=== PATIENT | male | born 1980 | race Caucasian/White ===

== ENCOUNTER 2018-03-25 19:28 | Emergency (ER) | payer OTHER ==
--- NOTE | 2018-03-25 19:41 | PDOC ---
Rapid Medical Evaluation Time Seen by Provider: 03/25/18 19:36 Medical Evaluation: Allergies Allergy/AdvReac Type Severity Reaction Status Date / Time No Known Allergies Allergy Verified 01/28/15 11:48 03/25/18 19:36 I have performed a brief in-person evaluation of this patient. The patient presents with a chief complaint of: Cough w/ body aches, SORENSON and fever x 3 days Pertinent physical exam findings:Low grade temp and tachy to 115 I have ordered the following:flu/rapid strep The patient will proceed to the ED for further evaluation. 03/25/18 19:42 Discharge Disposition - Diagnosis Viral syndrome - Referrals - Patient Instructions - Post Discharge Activity
[2018-03-25 19:47] VITALS: BMI 27.9
[2018-03-25] MEDS ORDERED: ACETAMINOPHEN 325 MG TABLET (FP) PO ONE (21:53)
[2018-03-25 21:55] VITALS: BP 130/84; PULSE 91; TEMP 97.9
[2018-03-25] MEDS ORDERED: ACETAMINOPHEN 325 MG TABLET (FP) ONE (21:56)
--- NOTE | 2018-03-25 21:57 | PDOC ---
History of Present Illness - General Chief Complaint: Cold Symptoms Stated Complaint: COUGHING Time Seen by Provider: 03/25/18 19:36 History Source: Patient - History of Present Illness Timing/Duration: reports: other Severity: reports: moderate Associated Symptoms: reports: cough, fever/chills, sore throat Past History - Past Medical History Allergies/Adverse Reactions: Allergies Allergy/AdvReac Type Severity Reaction Status Date / Time No Known Allergies Allergy Verified 01/28/15 11:48 Home Medications: Ambulatory Orders Amoxicillin - [Amoxicillin 875mg Tablet -] 875 mg PO BID #14 tab 03/25/18 Ibuprofen [Motrin -] 800 mg PO Q6H #30 tablet 03/25/18 COPD: No Hypercholesterolemia: Yes - Suicide/Smoking/Psychosocial Hx Smoking History: Never smoked Have you smoked in the past 12 months: No If you are a former smoker, when did you quit?: 2009 Information on smoking cessation initiated: No Hx Alcohol Use: No Drug/Substance Use Hx: No Substance Use Type: None Review of Systems - Review of Systems Constitutional: Yes: Chills, Fever, Malaise HEENTM: Yes: Throat Pain Respiratory: Yes: Cough. No: Shortness of Breath Cardiac (ROS): No: Chest Pain *Physical Exam - Vital Signs Last Vital Signs Temp Pulse Resp BP Pulse Ox 99.9 F H 115 H 20 140/80 100 03/25/18 19:38 03/25/18 19:38 03/25/18 19:38 03/25/18 19:38 03/25/18 19:38 - Physical Exam Comments: 03/25/18 21:56 appears uncomfortable General Appearance: Yes: Appropriately Dressed HEENT: positive: Normal Voice, Tonsillar Erythema. negative: Scleral Icterus (R ), Scleral Icterus (L), Tonsillar Exudate Neck: positive: Supple. negative: Lymphadenopathy (R), Lymphadenopathy (L) Respiratory/Chest: positive: Lungs Clear, Normal Breath Sounds Cardiovascular: positive: S1, S2, Tachycardia Integumentary: positive: Dry, Warm Neurologic: positive: Fully Oriented, Alert, Normal Mood/Affect ED Treatment Course - ADDITIONAL ORDERS Additional order review: 03/25/18 19:40 Group A Strep Rapid Antigen - Final Throat 03/25/18 19:40 Influenza Types A,B Antigen ([facility]) - Final Nasopharyngeal Swab - Final - RADIOLOGY Radiology Studies Ordered: Category Date Time Status CHEST PA & LAT [RAD] Stat Radiology 03/25/18 19:45 Completed Medical Decision Making - Medical Decision Making 03/25/18 21:52 37 yo M, no sig hx, non-smoker, here w/ cough, sore throat, body aches and fever x 3 days. Denies sick contacts or recent travel. No sob, CP, SORENSON, dizziness , photophobia, neck pain, nm/v/d See exam Viral syndrome Tachy w/ low garde fever -tylenol -flu swab -rapid strep 03/25/18 21:55 03/25/18 22:04 Rapid strep positive. Rpt vitals improved without intervention. Dc w/ abx and motrin. To f/u with PMD as needed *DC/Admit/Observation/Transfer Diagnosis at time of Disposition: Strep pharyngitis - Discharge Dispostion Disposition: HOME Condition at time of disposition: Improved - Prescriptions Prescriptions: Amoxicillin - [Amoxicillin 875mg Tablet -] 875 mg PO BID #14 tab Ibuprofen [Motrin -] 800 mg PO Q6H #30 tablet - Referrals Referrals: Gloria Deleon MD [Primary Care Provider] - - Patient Instructions Printed Discharge Instructions: Strep Throat Additional Instructions: You have strep throat Take medications as directed Please follow up with your PMD as needed - Post Discharge Activity Forms/Work/School Notes: Back to Work
== END 2018-03-25 22:10 | disposition home or self-care (01) ==
LOC: JERFT 19:28 → JER 19:28 → JERFT 22:10
DX: J02.0 Streptococcal pharyngitis (principal); B95.0 Streptococcus, group A, as the cause of diseases classified elsewhere
CPT/HCPCS: 71046-TC-FY; 87070; 87430; 87804; 99282-25

== ENCOUNTER 2020-01-07 16:14 | Emergency (ER) | payer OTHER ==
[2020-01-07] MEDS ORDERED: ACETAMINOPHEN 500 MG TABLET (FP) PO ONE (16:21)
--- NOTE | 2020-01-07 16:21 | PDOC ---
Rapid Medical Evaluation Time Seen by Provider: 01/07/20 16:17 Medical Evaluation: Allergies Allergy/AdvReac Type Severity Reaction Status Date / Time No Known Allergies Allergy Verified 01/28/15 11:48 01/07/20 16:17 CC: flu-like symptoms x3 days PE: OP-WNL. Lungs CTAB. AF. BP-163/103 Orders: tylenol Patient will proceed to ED for continued evaluation. Discharge Disposition - Diagnosis URI (upper respiratory infection) - Referrals - Patient Instructions - Post Discharge Activity
[2020-01-07 16:22] VITALS: PULSE 85; TEMP 97.6; BMI 26.4
[2020-01-07] MEDS ORDERED: ACETAMINOPHEN 325 MG TABLET (FP) ONE (16:31)
[2020-01-07] MEDS ORDERED: ALBUTEROL SO4 2.5/IPRATROPIUM 0.5 INH SOL 3 ML VIAL.NEB. NEB ONE (16:35)
--- NOTE | 2020-01-07 16:37 | PDOC ---
History of Present Illness - General Chief Complaint: Cold Symptoms Stated Complaint: COUGHING/FEVER Time Seen by Provider: 01/07/20 16:17 History Source: Patient Exam Limitations: No Limitations - History of Present Illness Initial Comments: 01/07/20 16:35 39-year-old male with history of diabetes presents complaining of dry cough, subjective fever, chills, body ache x 4 days. Decreased appetite however tolerating p.o. Denies chest pain, shortness of breath, abdominal pain, urinary symptoms, rash, recent travel or sick contacts. Has not taken any pain medication today. ROS: as above PE: GENERAL: well-appearing, NAD HEAD: NCAT EYES: Pupils equal, round and reactive to light, sclera anicteric, conjunctiva clear ENT: Normal bilateral ear canal, normal bilateral TM's, pharynx: no erythema, no exudate, uvula midline NECK: supple CHEST: nontender RESP: clear, no w/r/r CARDIO: rrr, no m/g/r ABD: +BS, soft, nontender, non distended BACK: no midline spinal ttp, no CVAT EXTREMITIES: Normal range of motion, no edema NEUROLOGICAL: Normal speech, normal gait SKIN: No rash, warm, Dry Is this a multiple visit Asthma Patient?: No Past History - Past Medical History Allergies/Adverse Reactions: Allergies Allergy/AdvReac Type Severity Reaction Status Date / Time No Known Allergies Allergy Verified 01/07/20 16:18 Home Medications: Ambulatory Orders Amoxicillin - [Amoxicillin 875mg Tablet -] 875 mg PO BID #14 tab 03/25/18 Ibuprofen [Motrin -] 800 mg PO Q6H #30 tablet 03/25/18 COPD: No Hypercholesterolemia: Yes - Psycho Social/Smoking Cessation Hx Smoking History: Never smoked Have you smoked in the past 12 months: No If you are a former smoker, when did you quit?: 2009 Hx Alcohol Use: No Drug/Substance Use Hx: No Substance Use Type: None *Physical Exam - Vital Signs Last Vital Signs Temp Pulse Resp BP Pulse Ox 97.6 F 85 18 163/103 H 98 01/07/20 16:18 01/07/20 16:18 01/07/20 16:18 01/07/20 16:18 01/07/20 16:18 ED Treatment Course - Medications Given in the ED: ED Medications Discontinued Medications Generic Name Dose Route Start Last Admin Trade Name Kenyatta PRN Reason Stop Dose Admin Acetaminophen 975 mg 01/07/20 16:21 01/07/20 16:30 Tylenol - PO 01/07/20 16:22 975 mg ONCE ONE Administration Medical Decision Making - Medical Decision Making 01/07/20 16:36 39-year-old male with dry cough, subjective fever, chills, body aches x 4 days. 1 DuoNeb ordered P.o. acetaminophen Reassess 01/07/20 17:40 Lungs clear Stable for discharge Return precautions discussed Discharge - Discharge Information Problems reviewed: Yes Clinical Impression/Diagnosis: URI (upper respiratory infection) Qualifiers: URI type: unspecified URI Qualified Code(s): J06.9 - Acute upper respiratory infection, unspecified Condition: Stable Disposition: HOME - Admission No - Follow up/Referral Referrals: Jimenez Blackburn MD [Primary Care Provider] - - Patient Discharge Instructions Additional Instructions: Rest, drink plenty of fluids Follow-up with your doctor this week Return to ED if you develop chest pain, shortness of breath, fever, chills, nausea, vomiting, diarrhea or worsening concerns - Post Discharge Activity
[2020-01-07 17:40] VITALS: BP 144/89
== END 2020-01-07 17:43 | disposition home or self-care (01) ==
LOC: JERFT 16:14
DX: J06.9 Acute upper respiratory infection, unspecified (principal); E78.00 Pure hypercholesterolemia, unspecified; E11.9 Type 2 diabetes mellitus without complications
CPT/HCPCS: 99283-25

== ENCOUNTER 2020-01-31 18:06 | Emergency (ER) | payer OTHER ==
[2020-01-31 18:12] VITALS: BP 168/94; PULSE 88; TEMP 98.1; BMI 26.6
--- NOTE | 2020-01-31 18:17 | PDOC ---
History of Present Illness - General Chief Complaint: Respiratory Stated Complaint: FEVER & COUGH Time Seen by Provider: 01/31/20 18:07 History Source: Patient Exam Limitations: No Limitations Past History - Past Medical History Allergies/Adverse Reactions: Allergies Allergy/AdvReac Type Severity Reaction Status Date / Time No Known Allergies Allergy Verified 01/31/20 18:12 Home Medications: Ambulatory Orders Amoxicillin - [Amoxicillin 875mg Tablet -] 875 mg PO BID #14 tab 03/25/18 Ibuprofen [Motrin -] 800 mg PO Q6H #30 tablet 03/25/18 COPD: No Hypercholesterolemia: Yes - Immunization History Immunization Up to Date: Yes - Psycho Social/Smoking Cessation Hx Smoking History: Never smoked Have you smoked in the past 12 months: No If you are a former smoker, when did you quit?: 2009 Information on smoking cessation initiated: No Hx Alcohol Use: No Drug/Substance Use Hx: No Substance Use Type: None *Physical Exam - Vital Signs Last Vital Signs Temp Pulse Resp BP Pulse Ox 98.1 F 88 18 168/94 100 01/31/20 18:10 01/31/20 18:10 01/31/20 18:10 01/31/20 18:10 01/31/20 18:10 - Physical Exam General Appearance: No: Apparent Distress HEENT: positive: Normal Voice, Nasal Congestion (mild). negative: Muffled/Hoarse voice, Rhinorrhea Respiratory/Chest: positive: Lungs Clear, Normal Breath Sounds. negative: Respiratory Distress Cardiovascular: positive: Regular Rhythm, Regular Rate, S1, S2. negative: Murmur Neurologic: positive: Alert ED Treatment Course - RADIOLOGY Radiology Studies Ordered: Category Date Time Status CHEST PA & LAT [RAD] Stat Radiology 01/31/20 18:13 Ordered Medical Decision Making - Medical Decision Making 39 y/o M hx of DM presents with cough with white phlegm x 1 month. Per , had fever 3 days ago but none since then. +mild congestion and postnasal drip. Denies sore throat, sob, cp, abd pain, n/v, recent travel. Denies known exposure to anyone with COVID. Patient was here last month with similar symptoms and diagnosed with URI. Denies smoking. Did not take any antipyretics today. Unlikely COVID19 Could be allergies Plan: CXR 01/31/20 18:15 CXR negative 01/31/20 18:52 Discharge - Discharge Information Problems reviewed: Yes Clinical Impression/Diagnosis: Cough Condition: Stable Disposition: HOME - Admission No - Additional Discharge Information Prescription Drug Monitoring Program (I-STOP) results: I-STOP not reviewed - Follow up/Referral Referrals: Jimenez Blackburn MD [Primary Care Provider] - 2 Days - Patient Discharge Instructions Patient Printed Discharge Instructions: DI for Cough -- Adult Additional Instructions: Thank you for choosing [facility]. It was a pleasure taking care of you. Your chest xray was normal Recommend taking Flonase spray (use at least 3-4 days) for nasal congestion Take Claritin or Hali to see if helps with your cough Follow-up with your doctor in 2 days Return to the Emergency Department if your symptoms worsen or persist or have other concerning symptoms. Jose por elegir el [facility]. Fue un placer cuidar de ti. Tu radiografa de trax era normal Recomendamos luis alberto Flonase spray (usar al menos 3-4 solis) para la congestin nasal [place] Claritin o Hali para dillan si le ayuda con la tos. Seguimiento con abdi mdico en 2 solis. Regrese al departamento de emergencias si young sntomas empeoran o persisten o si tiene otros sntomas preocupantes. - Post Discharge Activity
== END 2020-01-31 18:56 | disposition home or self-care (01) ==
LOC: JER 18:06
DX: R05 Cough (principal); E11.9 Type 2 diabetes mellitus without complications; E78.00 Pure hypercholesterolemia, unspecified
CPT/HCPCS: 71046-TC-FY; 99283-25

== ENCOUNTER 2022-01-19 10:31 | Emergency (ER) | payer OTHER ==
[2022-01-19 11:11] VITALS: BP 163/97; PULSE 84; TEMP 97.1; BMI 25.2
[2022-01-19] MEDS ORDERED: KETOROLAC TROMETHAMINE 30 MG/1 ML VIAL IVPB ONE (11:46)
[2022-01-19] MEDS ORDERED: SODIUM CHLORIDE 0.9% 500 ML INFUS.BAG IV ONE (11:46)
[2022-01-19] MEDS ORDERED: ONDANSETRON 4 MG/2 ML VIAL IVPUSH ONE (11:46)
[2022-01-19] MEDS ORDERED: ONDANSETRON 4 MG/2 ML VIAL ONE (11:57)
[2022-01-19] MEDS ORDERED: KETOROLAC TROMETHAMINE 30 MG/1 ML VIAL ONE (11:57)
[2022-01-19 12:21] LABS: EPI CELLS 2 /uL (0-25.1); HYALINE CASTS 1 /uL (0-3.1); URINE APPEARANCE CLEAR; URINE BACTERIA 1 /uL (0-1359); URINE BILIRUBIN NEGATIVE (NEGATIVE); URINE COLOR YELLOW; URINE GLUCOSE (UA) 2+ (NEGATIVE); URINE KETONE 1+ (NEGATIVE); URINE LEUK ESTERASE NEGATIVE (NEGATIVE); URINE NITRITE NEGATIVE (NEGATIVE); URINE PROTEIN 1+ (NEGATIVE); URINE RBC 4 /uL (0-23.9); URINE UROBILINOGEN 0.2 mg/dL (0.2-1.0); URINE WBC 3 /uL (0-25.8)
[2022-01-19 12:28] LABS: BASO % 1.2 % (0-2.0); EOS % 4.2 % (0-4.5); HEMATOCRIT 43.6 % (35.4-49); HEMOGLOBIN 15.6 GM/dL (11.7-16.9); LYMPH % 39.8 % (8-40); MCHC 35.7 g/dl (32.0-35.9); MEAN CELL VOLUME 86.9 fl (80-96); MEAN PLT VOLUME 8.7 fl (7.5-11.1); MONO % 8.1 % (3.8-10.2); NEUT % 46.7 % (42.8-82.8); PLATELET COUNT 193 10^3/uL (134-434); RBC 5.02 M/mm3 (4.00-5.60); RDW 13.6 % (11.9-15.9); WHITE BLOOD COUNT 5.9 K/mm3 (4.0-10.0)
[2022-01-19 12:53] LABS: ALBUMIN 4.1 g/dl (3.4-5.0); CALCIUM 9.3 mg/dL (8.5-10.1)
[2022-01-19 12:54] LABS: BLOOD UREA NITROGEN 11.9 mg/dL (7-18)
[2022-01-19 12:56] LABS: CREATININE 0.7 mg/dL (0.55-1.3)
[2022-01-19 12:58] LABS: BILIRUBIN,TOTAL 0.8 mg/dL (0.2-1)
[2022-01-19 15:10] LABS: TOT PROT 7.8 g/dl (6.4-8.2)
== END 2022-01-19 16:01 | disposition home or self-care (01) ==
LOC: JER 10:31
PROC: 3E033GC Introduction of Other Therapeutic Substance into Peripheral Vein, Percutaneous Approach (ICD-10-PCS; principal; 2022-01-19)
DX: R10.84 Generalized abdominal pain (principal)
CPT/HCPCS: 36415; 74176-TC; 76870-TC; 80053; 81003; 83690; 85025; 87086; 99285-25

== ENCOUNTER 2022-12-12 12:34 | Emergency (ER) | payer OTHER ==
[2022-12-12 12:41] VITALS: TEMP 97.4; BMI 25.0
[2022-12-12 13:19] VITALS: RESP 18
[2022-12-12] MEDS ORDERED: ACETAMINOPHEN 1000 MG/100 ML BAG IVPB ONE (13:22)
[2022-12-12] MEDS ORDERED: SODIUM CHLORIDE 0.9% 500 ML INFUS.BAG IV ONE (13:22)
[2022-12-12] MEDS ORDERED: ONDANSETRON 4 MG/2 ML VIAL IVPUSH ONE (13:22)
[2022-12-12] MEDS ORDERED: ACETAMINOPHEN INJECTION 100 ML IVPB ONE (13:28)
[2022-12-12] MEDS ORDERED: ONDANSETRON 4 MG/2 ML VIAL ONE (13:28)
[2022-12-12 13:37] LABS: BASO % 1.3 % (0-2.0); EOS % 3.7 % (0-4.5); HEMATOCRIT 47.1 % (35.4-49); HEMOGLOBIN 16.1 GM/dL (11.7-16.9); LYMPH % 36.4 % (8-40); MCH 29.9 pg (25.7-33.7); MCHC 34.1 g/dl (32.0-35.9); MEAN CELL VOLUME 87.7 fl (80-96); MEAN PLT VOLUME 8.8 fl (7.5-11.1); MONO % 6.9 % (3.8-10.2); NEUT % 51.7 % (42.8-82.8); PLATELET COUNT 221 10^3/uL (134-434); RBC 5.37 M/mm3 (4.00-5.60); RDW 13.4 % (11.9-15.9); WHITE BLOOD COUNT 6.9 K/mm3 (4.0-10.0)
[2022-12-12 13:49] LABS: PH,URINE 6.5 (5.0-8.0); URINE APPEARANCE CLEAR; URINE BILIRUBIN NEGATIVE (NEGATIVE); URINE COLOR YELLOW; URINE GLUCOSE (UA) 3+ (NEGATIVE); URINE KETONE TRACE (NEGATIVE); URINE LEUK ESTERASE NEGATIVE (NEGATIVE); URINE NITRITE NEGATIVE (NEGATIVE); URINE PROTEIN TRACE (NEGATIVE)
[2022-12-12 14:57] LABS: ALBUMIN 3.9 g/dl (3.4-5.0); BLOOD UREA NITROGEN 12.1 mg/dL (7-18); CALCIUM 9.4 mg/dL (8.5-10.1)
[2022-12-12 15:01] LABS: CREATININE 0.8 mg/dL (0.55-1.3)
[2022-12-12 15:03] LABS: BILIRUBIN,TOTAL 0.4 mg/dL (0.2-1); TOT PROT 7.8 g/dl (6.4-8.2)
[2022-12-12 17:37] VITALS: BP 157/97; PULSE 67
== END 2022-12-12 19:51 | disposition home or self-care (01) ==
LOC: JER 12:34
PROC: 3E033GC Introduction of Other Therapeutic Substance into Peripheral Vein, Percutaneous Approach (ICD-10-PCS; principal; 2022-12-12)
DX: K56.7 Ileus, unspecified (principal)
CPT/HCPCS: 36415; 74177-TC; 80053; 81003; 83690; 85025; 99285-25; Q9967

== ENCOUNTER 2024-02-04 15:23 | Emergency (ER) | payer OTHER ==
[2024-02-04 15:29] VITALS: BP 150/93; PULSE 73; RESP 20; TEMP 98.6; BMI 25.0
[2024-02-04] MEDS ORDERED: KETOROLAC TROMETHAMINE 30 MG/1 ML VIAL ONE (16:16)
[2024-02-04 16:47] LABS: EOS % 3.5 % (0-4.5); HEMATOCRIT 44.4 % (35.4-49); HEMOGLOBIN 15.3 GM/dL (11.7-16.9); LYMPH % 41.4 % (8-40); MCH 30.4 pg (25.7-33.7); MCHC 34.5 g/dl (32.0-35.9); MEAN CELL VOLUME 88.2 fl (80-96); MEAN PLT VOLUME 8.3 fl (7.5-11.1); MONO % 7.9 % (3.8-10.2); NEUT % 46.2 % (42.8-82.8); PLATELET COUNT 225 10^3/uL (134-434); RBC 5.04 M/mm3 (4.00-5.60); RDW 13.8 % (11.9-15.9); WHITE BLOOD COUNT 7.9 K/mm3 (4.0-10.0)
[2024-02-04] MEDS: SODIUM CHLORIDE 0.9% 500 ML INFUS.BAG IV ONE (16:50)
[2024-02-04] MEDS: KETOROLAC TROMETHAMINE 30 MG/1 ML VIAL IVPUSH ONE (16:50)
[2024-02-04 17:31] LABS: POTASSIUM 4.2 mmol/L (3.5-5.1)
[2024-02-04 17:35] LABS: ALBUMIN 4.2 g/dl (3.4-5.0); BLOOD UREA NITROGEN 10.1 mg/dL (7-18); CALCIUM 9.8 mg/dL (8.5-10.1)
[2024-02-04 17:38] LABS: CREATININE 0.8 mg/dL (0.55-1.3)
[2024-02-04 17:40] LABS: BILIRUBIN,TOTAL 0.4 mg/dL (0.2-1); TOT PROT 7.9 g/dl (6.4-8.2)
== END 2024-02-04 20:47 | disposition home or self-care (01) ==
LOC: JER 15:23
PROC: 3E0303Z Introduction of Anti-inflammatory into Peripheral Vein, Open Approach (ICD-10-PCS; principal; 2024-02-04)
DX: R05.9 Cough, unspecified (principal); R09.81 Nasal congestion; R10.11 Right upper quadrant pain; Z20.822 Contact with and (suspected) exposure to COVID-19
CPT/HCPCS: 0241U-QW; 36415; 74177-TC; 76705-TC; 80053; 83690; 85025; 86850; 86900; 86901; 99285-25; Q9967